=== PATIENT | female | born 1995 | race Two or more races ===

== ENCOUNTER → 2024-03-15 | Outpatient (CLI) | payer OTHER, SELFPAY ==
--- NOTE | 2024-03-15 | XR_ITS ---
Examination: Lumbar spine 3 views Technique one AP lateral coned lateral lower lumbar spine 3 views Exam date and time: March 15, 2024 1550 hrs. Indications: Lower back pain months. Findings: Lumbar levoscoliosis 19 degrees Adequate bone density No lumbar fracture No spondylolisthesis No significant lumbar disc narrowing Impression: Lumbar levoscoliosis 19 degrees
--- NOTE | 2024-03-15 15:19 | XR_ITS ---
Examination: Thoracic spine 3 views Technique one AP lateral coned lateral upper dorsal spine 3 views Exam date and time: March 15, 2024 1555 hrs. Indications: Back pain months Findings: Thoracic dextroscoliosis 18 degrees No thoracic fracture No thoracic significant disc narrowing Intact pedicles Impression: Thoracic dextroscoliosis 18 degrees
--- NOTE | 2024-03-15 15:19 | XR_ITS ---
Examination: Sacroiliac joints 3 views Technique one AP RAINEY GUINEAN sacroiliac joints 3 views Exam date and time: March 15, 2024 1545 hrs. Indications: Sacral pain months Findings: Mild bilateral sacroiliitis with indistinctness of the sacral iliac margins and mild sclerosis Intrauterine device left central pelvis No fracture Impression: Mild sacroiliitis
== END | disposition home or self-care (01) ==
PROVIDERS: PCP Physician Assistant Medical; Referring Provider Chiropractor; Visit Provider Chiropractor
DX: M41.84 Other forms of scoliosis, thoracic region (principal); M46.1 Sacroiliitis, not elsewhere classified; M41.86 Other forms of scoliosis, lumbar region
CPT/HCPCS: 72070; 72100; 72202

== ENCOUNTER 2024-11-29 20:49 | Emergency (ER) | payer BC, MEDICAID, SELFPAY ==
[2024-11-29 20:49] VITALS: BMI 36.6
[2024-11-29 21:01] VITALS: BP 142/90; PULSE 64; RESP 18; TEMP 36.7; O2SAT 100
--- NOTE | 2024-11-29 21:14 | EKG_ITS ---
[facility] Test Date: 2024-11-29 Pat Name: QUENTIN DE LA CRUZ Department: Room: - Gender: Female Upsetter: : 1995 Requested By: Rudy Max Order Number: [id number] Reading MD: Rudy Max Measurements Intervals [place] Rate: 69 P: 52 [place]: 173 QRS: 12 QRSD: 93 T: 24 QT: 429 QTc: 460 Interpretive Statements SINUS RHYTHM No previous ECG available for comparison /[id number]/S0/[id number].pdf
--- NOTE | 2024-11-29 22:23 | XR_ITS ---
Examination: PA chest single view Technique: Upright PA chest single view. Date and time: November 29, 2024 10:55 PM Indications: Chest pain shortness of breath today. Findings: Minimal prominence of ventricle No lobar pneumonia or pulmonary edema. The osseous structures are intact Impression: No active disease
--- NOTE | 2024-11-29 22:23 | PD.EDRME ---
Rapid Medical Screening Exam [facility] Arrival date/time: 11/29/24 20:49 29F with history of ankylosing spondylitis presents to ED with several hours of CP. Patient was sent by her boss from to be physically cleared. Chief Complaint: Chest Pain Vital signs: Vital Signs Temperature 98.1 F 11/29/24 21:01 Pulse Rate 64 11/29/24 21:01 Respiratory Rate 18 11/29/24 21:01 Blood Pressure 142/90 H 11/29/24 21:01 Pulse Oximetry (%) 100 11/29/24 21:01 Oxygen Delivery Method Room Air 11/29/24 21:01
[2024-11-29 22:34] LABS: Basophils # (Auto) 0.1 Thou/mm3 (0.0-0.2); Basophils % (Auto) 1 % (0-2.5); Eosinophils # (Auto) 0.2 Thou/mm3 (0.0-0.5); Eosinophils % (Auto) 2 % (0-10); Hematocrit 39.4 % (36.0-46.0); Hemoglobin 13.3 g/dL (12.0-16.0); Immature Granulocytes Auto 0.02 Thou/mm3 (0.00-0.00); Lymphocytes # (Auto) 2.6 Thou/mm3 (1.0-4.8); Lymphocytes % (Auto) 35 % (10-50); Mean Corpuscular HGB Conc 33.8 g/dl (31.0-37.0); Mean Corpuscular Hemoglobin 30.2 pg (25.0-35.0); Mean Corpuscular Volume 90 fL (80-100); Monocytes # (Auto) 0.4 Thou/mm3 (0.0-0.8); Monocytes % (Auto) 5 % (0-12); Neutrophils # (Auto) 4.0 Thou/mm3 (1.8-7.7); Neutrophils % (Auto) 56 % (37-80); Nucleated Red Blood Cell # 0.00 Thou/mm3 (0.00-0.00); Nucleated Red Blood Cell % 0 /100 WBC (0); Platelet Count 351 Thou/mm3 (140-440); RDW Standard Deviation 39.7 fL (36.4-46.3); Red Blood Count 4.40 Miln/mm3 (4.00-5.20); White Blood Count 7.2 Thou/mm3 (3.6-11.0)
[2024-11-29 22:53] LABS: Alanine Aminotransferase 58 U/L (10-49); Albumin, Serum 4.8 gm/dL (3.5-5.0); Albumin/Globulin Ratio 1.7 (1.2-2.2); Alkaline Phosphatase 71 U/L (46-116); Anion Gap 10 (7-16); Aspartate Amino Transferase 42 U/L (0-34); BUN/Creatinine Ratio 13 Ratio (12-20); Bilirubin,Total 0.5 mg/dL (0.3-1.2); Blood Urea Nitrogen 9 mg/dL (9-23); Calcium 9.9 mg/dL (8.3-10.6); Calcium (Corrected) 9.9 mg/dL (8.5-10.1); Carbon Dioxide 24.3 mMol/L (20.0-31.0); Chloride 107 mMol/L (98-107); Creatinine (Component) 0.7 mg/dL (0.6-1.3); Estimated Creatinine Clearance 137.5 mL/min (>60); Globulin 2.8 gm/dL (2.3-3.5); Glucose 104 mg/dL (74-106); Osmolality,Calculated 279 (275-295); Potassium 4.2 mMol/L (3.4-5.1); Sodium 141 mMol/L (136-145); Total Protein 7.6 gm/dL (5.7-8.2); Troponin I < 0.002 ng/mL (0.0-0.045); eGFR > 60 See Note
[2024-11-29 23:21] VITALS: BP 131/68; PULSE 64; RESP 18; TEMP 37.2; O2SAT 100
--- NOTE | 2024-11-29 23:28 | EDNOTE_ITS ---
ED Chest Pain RME/HPI General Chief Complaint: Chest Pain Stated Complaint: CHEST PAIN Arrival date/time: 11/29/24 20:49 RME / HPI RME / HPI narrative: 11/29/24 20:49 29F with history of ankylosing spondylitis presents to ED with several hours of CP. Patient was sent by her boss from to be physically cleared. Related Data Previous Rx's ?Medication ?Instructions ?Recorded ibuprofen 800 mg tablet 800 mg PO TID pain #60 tabs 12/25/18 Allergies Allergy/AdvReac Type Severity Reaction Status Date / Time Penicillins Allergy Mild Rash Verified 12/25/18 11:42 codeine Allergy Unknown rash Verified 12/25/18 11:42 morphine Allergy Unknown rash Verified 12/25/18 11:42 ED Exam Narrative Physical exam: Generally patient is alert in no obvious distress, heart regular rate and rhythm, chest shows reproducible left upper chest pain to palpation without overlying rash crepitance or subcu air, lungs clear to auscultation equal bilaterally, abdomen soft bowel sounds present times and nontender, extremities show no edema, neurologic exam shows a [place] Coma Scale of 15 Course Quality Measures none Orders Category Date Time Status EKG (ED ONLY) *Do not use* NOW Care 11/29/24 21:14 Completed EKG (ED Only) Stat Exams 11/29/24 21:14 Draft XR chest 1V portable Stat Exams 11/29/24 22:23 Completed CBC Stat Lab 11/29/24 22:29 Completed Comprehensive Metabolic Panel Stat Lab 11/29/24 22:29 Completed Troponin I Stat Lab 11/29/24 22:29 Completed Vital Signs Vital signs: Vital Signs Temperature 98.1 F 11/29/24 21:01 Pulse Rate 64 11/29/24 21:01 Respiratory Rate 18 11/29/24 21:01 Blood Pressure 142/90 H 11/29/24 21:01 Pulse Oximetry (%) 100 11/29/24 21:01 Oxygen Delivery Method Room Air 11/29/24 21:01 Chest Pain MDM Narrative MDM Narrative:: Scribe Attestation: Shirlene Crow am scribing for and in the presence of Dr. Parker. Provider Notation: Although this document has been carefully reviewed, there may still be some phonetic and other typographical errors. These errors are purely grammatical due to imperfections in the software program and should not be construed in any way to? compromise the substance of the patient's medical care during this visit. Differential diagnosis: Acute coronary syndrome, musculoskeletal pain, noncardiac chest pain EKG done at 9:20 PM shows normal sinus rhythm at a rate of 69 without ischemic change or ectopy. Chest x-ray is normal. I interpreted all labs. Troponin drawn 5 hours from the onset of chest pain showed no elevation. Patient will be discharged in stable condition to follow-up with primary care for further treatment and evaluation and to return to the emergency room if chest pain worsens or becomes more frequent or last longer. Patient data External records reviewed:: [facility] previous records Clinical information provided by:: patient Social determinants that could affect healthcare access:: none Patient has the following chronic illnesses:: None How is presenting disease/condition affected by chronic disease/condition?: uneffected by Evaluation data The following diagnostics were reviewed and interpreted by me:: lab results, radiology exam(s) and EKG tracing(s) Lab and/or radiology exams considered but not ordered:: None Interpretation Summary: RADIOLOGY Chest X-Ray: Findings: Minimal prominence of ventricle No lobar pneumonia or pulmonary edema. The osseous structures are intact Impression: No active disease Medications / Prescriptions Medications or Prescriptions considered but not ordered:: None Medication administrations:: Seee above if any. Consultations Consultation(s) initiated? (list below): No Diagnosis Chest Pain Differential Diagnosis: stable angina, unstable angina pectoris, atypical chest pain, st elevation myocardial infarction, costochondritis, chest pain and biliary colic Most likely diagnosis given after review of the tests above:: None Admission Indicated Admission indicated?: not indicated Explain why admission is indicated or not indicated:: Patient does not meet admission criteria. Admission Request Was there a request for admission?: No Disposition Plan Disposition Plan: Discharge Discharge Attestation Discharge Attestation: The patient and all family members were given an opportunity to ask questions and understood the discharge instructions. Discharge instructions specifically effects, indications for sooner follow up or return to the emergency department, and the expected course of current diagnosis. Patient condition: Stable Discharge Plan Plan Patient Disposition: HOME (Self Care) Prescriptions/Referrals Prescriptions/Med Rec: No Action ibuprofen 800 mg tablet 800 mg PO TID MDD 3 tabs Qty: 60 0RF Referrals: Norma Sullivan PA-C [Primary Care Provider] - In 1 week Problem List Clinical Impression: Chest pain Patient/Caregiver Discharge Instructions Education Materials: ED Chest Pain, Uncertain Cause Additional Instructions: You are medically clear for work. Follow-up with your doctor if chest pain persists or becomes stronger or more frequent or lasts longer. Print Language: Lao Stand Alone Forms: Charo Award Info., Patient Portal Info Letter
[2024-11-29 23:34] VITALS: BP 145/80; PULSE 85; RESP 14; TEMP 37; O2SAT 99
== END 2024-11-29 23:42 | disposition home or self-care (01) ==
PROVIDERS: Physician Assistant; Emergency Provider Emergency Medicine; PCP Physician Assistant Medical
DX: R07.9 Chest pain, unspecified (principal); R06.02 Shortness of breath
CPT/HCPCS: 36415; 71045; 80053; 84484; 85025; 93005; 99283